=== PATIENT | female | born 1990 | race Caucasian/White ===

== ENCOUNTER 2025-01-04 17:28 | Emergency (ER) | payer OTHER ==
[~2025-01-04] VITALS: Ht 170.2 cm; Wt 120.2 kg
[~2025-01-04 17:28] MED LIST: ASCO500; GENT.3OPSA OU; IBUP600 PO
== END 2025-01-04 19:25 | disposition home or self-care (01) ==
LOC: ER 17:28
DX: S11.91XA Laceration without foreign body of unspecified part of neck, initial encounter (principal); W22.8XXA Striking against or struck by other objects, initial encounter
CPT/HCPCS: 12002; 90471; 90715; 99282-25